=== PATIENT | male | born 1990 | race Caucasian/White ===

== ENCOUNTER 2020-03-08 23:19 | Emergency (ER) | payer OTHER ==
[~2020-03-08] VITALS: Ht 177.8 cm; Wt 67.1 kg
[2020-03-08 23:19] VITALS: BP_SYST 119
[2020-03-08] MEDS ORDERED: NACL 0.9% 1,000 ML IV ONE (23:37)
[2020-03-08] MEDS ORDERED: methylPREDNISolone SOD SUCC/PF 62.5 MG/ML VIAL IVP ONE (23:45)
[2020-03-08] MEDS ORDERED: DIPHENHYDRAMINE INJ 50 MG/ML VIAL IVP ONE (23:45)
[2020-03-08] MEDS ORDERED: FAMOTIDINE PF 20 MG/2 ML VIAL IVP ONE (23:45)
--- NOTE | 2020-03-09 | NUR ---
PT TO BED 4. ALERT AND ORIENTED. C/O ALLERGIC REACTION FROM EATING PEANUTS. PT ANXIOUS BUT NO ACUTE DISTRESS NOTED.
--- NOTE | 2020-03-09 00:01 | NUR ---
ER Dr. HART at bedside examining patient.
[2020-03-09] MEDS ORDERED: ONDANSETRON HCL 4 MG/2 ML VIAL IVP ONE (00:15)
[2020-03-09 02:04] VITALS: BP_SYST 119
--- NOTE | 2020-03-09 02:05 | NUR ---
PT A/O AND NO SOB NOTED. TOLERATED MEDICATION ORDERED. IVF COMPLETED.
== END 2020-03-09 02:04 | disposition home or self-care (01) ==
LOC: SED 23:19
DX: T78.1XXA Other adverse food reactions, not elsewhere classified, initial encounter (principal); Z88.2 Allergy status to sulfonamides; X58.XXXA Exposure to other specified factors, initial encounter
CPT/HCPCS: 96374; 96375 ×2; 99284; J1200; J2405; J2930; J3490; 96376